=== PATIENT | male | born 1970 ===

== ENCOUNTER 2016-11-14 06:22 | Day surgery (SDC) | payer OTHER ==
[2016-11-14 06:44] VITALS: BMI 28.1
--- NOTE | 2016-11-14 08:02 | CP.SDSHP ---
Same Day Surgery H & P - History Proposed Procedure: COLONSCOPY Pre-Op Diagnosis: SEE NOTES - Previous Medical/Surgical History Cardiac: Hypertension Endocrine/Metabolic: Diabetes, Other Misc: Other Pain: 4.Moderate Pain - Allergies Allergies: Allergies No Known Allergies Allergy (Verified 11/04/15 21:00) - Physical Exam General Appearance: N Vital Signs: Vital Signs 11/14/16 11/14/16 07:13 07:46 Temperature 97.6 F 97.6 F Pulse Rate 80 80 Respiratory 16 16 Rate Blood Pressure 115/66 115/66 O2 Sat by Pulse 97 97 Oximetry Mental Status: Alert & Oriented x3 Neuro: WNL Heart: Other Lungs: WNL GI: Other - {Optional Preform as Required} Breast: WNL Abdomen: Other Rectal: Other Integument: WNL : Other Ortho: Other ENT: WNL - Impression Pt. Evaluated Today:Candidate for Anesthesia & Procedure: Yes - Date & Time Time: 08:03 Short Stay Discharge - Short Stay Discharge Admitting Diagnosis/Reason for Visit: HEMORRHAGE OF ANUS AND RECTUM,OTHER SPECIFIED SHILOH Disposition: HOME/ ROUTINE
[2016-11-14] MEDS ORDERED: Belladonna-Phenobarbital PO STA (08:03)
[2016-11-14] MEDS ORDERED: Propofol 10 mg/ml Inj (20 ML) ONE (08:06)
[2016-11-14 08:37] VITALS: TEMP 98
[2016-11-14 09:13] VITALS: O2SAT 100
[2016-11-14 11:34] VITALS: BP 125/71; PULSE 81; RESP 18
== END 2016-11-14 10:45 | disposition home or self-care (01) ==
LOC: C.ENDO 06:22
PROVIDERS: ATTEND Specialist
DX: K62.5 Hemorrhage of anus and rectum (principal); K64.8 Other hemorrhoids; K60.2 Anal fissure, unspecified; K52.9 Noninfective gastroenteritis and colitis, unspecified
CPT/HCPCS: 45380; 82948; 88305; J2704; J7040

== ENCOUNTER 2017-01-22 16:18 | Inpatient (IN) | payer OTHER ==
[2017-01-22 16:19] VITALS: BMI 28.1
[2017-01-22] MEDS ORDERED: Enalaprilat 2.5 MG/2 ML IV STA (17:38)
[2017-01-22 17:42] LABS: BASO % 0.6 % (0.0-2.0); EOS # 0.1 K/uL (0.0-0.7); EOS % 1.2 % (0.0-4.0); HEMATOCRIT 32.9 % (35.0-51.0); LYMPH # 1.6 K/uL (1.0-4.3); LYMPH % 20.8 % (20.0-40.0); MEAN CELL VOLUME 79.4 fL (80.0-94.0); MEAN CORPUSCULAR HEMOGLOBIN 26.7 pg (27.0-31.0); MEAN CORPUSCULAR HGB CONC 33.6 g/dL (33.0-37.0); MONO # 0.6 K/uL (0.0-0.8); MONO % 7.5 % (0.0-10.0); RBC URINE 23 /hpf (0-3); RED CELL DISTRIBUTION WIDTH 13.6 % (11.5-14.5); TRANSITIONAL EPITHIAL < 1 /hpf (0-3); URINE BACTERIA RARE (<OCC); URINE BILIRUBIN NEGATIVE (NEGATIVE); URINE COLOR Yellow (YELLOW); URINE GLUCOSE (UA) 1+ mg/dL (Normal); URINE KETONE NEGATIVE (NEGATIVE); URINE LEUKOCYTE ESTERASE NEG Leu/uL (Negative); URINE PROTEIN 3+ mg/dL (NEGATIVE); URINE UROBILINOGEN NORMAL mg/dL (0.2-1.0); WBC URINE 3 /hpf (0-5); WHITE BLOOD COUNT 7.9 K/uL (4.8-10.8)
[2017-01-22] MEDS ORDERED: Enalaprilat 2.5 MG/2 ML ONE (17:43)
[2017-01-22 17:46] LABS: URINE BLOOD 3+ (NEGATIVE)
[2017-01-22 17:49] LABS: CHLORIDE 101 mmol/L (98-107)
[2017-01-22 17:50] LABS: POTASSIUM 3.3 mmol/L (3.6-5.2); SODIUM 140 mmol/L (132-148)
[2017-01-22 17:52] LABS: ALB/GLOB RATIO 1.1 (1.0-2.1); ALKALINE PHOSPHATASE 85 U/L (38-126); AST/SGOT 28 U/L (17-59); BILIRUBIN,TOTAL 0.4 mg/dL (0.2-1.3); BLOOD UREA NITROGEN 18 mg/dL (9-20); CARBON DIOXIDE 27 mmol/L (22-30); GFR AFRICAN-AMERICAN 53; PARTIAL THROMBOPLASTIN TIME 33 SECONDS (21-34); TOTAL PROTEIN 6.5 g/dL (6.3-8.3)
[2017-01-22 17:53] LABS: ALT/SGPT 31 U/L (21-72); CALCIUM 8.7 mg/dl (8.6-10.4); GLUCOSE,RANDOM 97 mg/dL (75-110)
--- NOTE | 2017-01-22 18:50 | RAD ---
HISTORY: CP COMPARISON: None available TECHNIQUE: Chest, one view. FINDINGS: Examination limited by habitus. LUNGS: No focal consolidation. Please note that chest x-ray has limited sensitivity for the detection of pulmonary masses. PLEURA: No significant pleural effusion identified. No definite pneumothorax . CARDIOVASCULAR: The cardiomediastinal silhouette appears within normal limits of size. OSSEOUS STRUCTURES: No acute osseous abnormality identified. VISUALIZED UPPER ABDOMEN: Unremarkable. OTHER FINDINGS: None. IMPRESSION: No focal consolidation, significant pleural effusion, or definite pneumothorax identified.
--- NOTE | 2017-01-22 19:08 | C.PDOC ---
History Of Present Illness 47 y/o male presents to the ED with complaints of chest pain x4-5 days, radiates to back. Pt seen by Dr Nicola torres who referred patient to ED for further evaluation. He denies SOB, fever, chills, vomiting or any other complaints. Time Seen by Provider: 01/22/17 17:11 Chief Complaint (Nursing): Chest Pain History Per: Patient History/Exam Limitations: no limitations Onset/Duration Of Symptoms: Days Current Symptoms Are (Timing): Still Present Severity: Moderate Quality: "Pain" Modifying Factors: None Alleviating Factors: None Recent travel outside of the [place]: No Past Medical History Reviewed: Historical Data, Nursing Documentation, Vital Signs Vital Signs: Last Vital Signs Temp 98.5 F 01/22/17 16:29 Pulse 84 01/22/17 19:46 Resp 16 01/22/17 19:46 BP 206/130 H 01/22/17 19:46 Pulse Ox 98 01/22/17 19:46 - Medical History PMH: Anemia, Anxiety, Asthma, Depression, HTN, Hypercholesterolemia, Chronic Kidney Disease Family History: States: Unknown Family Hx - Social History Hx Alcohol Use: No Hx Substance Use: No - Immunization History Hx Tetanus Toxoid Vaccination: Yes Hx Influenza Vaccination: Yes Hx Pneumococcal Vaccination: Yes Review Of Systems Except As Marked, All Systems Reviewed And Found Negative. Constitutional: Negative for: Fever, Chills Cardiovascular: Positive for: Chest Pain Respiratory: Negative for: Shortness of Breath Gastrointestinal: Negative for: Vomiting Physical Exam - Physical Exam Appears: Non-toxic, No Acute Distress Skin: Warm, Dry, No Rash Head: Atraumatic, Normacephalic Neck: Normal, Normal ROM, Supple Chest: Symmetrical, No Tenderness Cardiovascular: Rhythm Regular, No Murmur Respiratory: Normal Breath Sounds, No Accessory Muscle Use, No Rales, No Rhonchi , No Wheezing Gastrointestinal/Abdominal: Normal Exam, Soft, No Tenderness Extremity: No Pedal Edema Extremity: Bilateral: Atraumatic Neurological/Psych: Oriented x3, Normal Speech, Normal Cognition ED Course And Treatment - Laboratory Results Result Diagrams: 01/22/17 17:30 01/22/17 17:30 ECG: Interpreted By Me, Viewed By Me ECG Rhythm: Sinus Rhythm ECG Interpretation: No Acute Changes Rate From EC (BPM) O2 Sat by Pulse Oximetry: 98 (room air) Pulse Ox Interpretation: Normal - Other Rad CXR X-Ray: Viewed By Me, Read By Radiologist Interpretation: Accession No. : [id number]. Patient Name / ID : VIVIANA Lynn / [id number]. Exam Date : 01/22/2017 17:24:20 ( Approved ). Study Comment : Sex / Age : M / 47Y. Creator : Romi Blum MD. Dictator : Romi Blum MD. Associate Justice : Weigh And Charge Worker : Romi Blum MD. Approver2 : Report Date : 01/22/2017 18:48:11. My Comment : . HISTORY: CP. COMPARISON: None available. TECHNIQUE: Chest, one view. FINDINGS: Examination limited by habitus. LUNGS: No focal consolidation. Please note that chest x-ray has limited sensitivity for the detection of pulmonary masses. PLEURA: No significant pleural effusion identified. No definite pneumothorax . CARDIOVASCULAR: The cardiomediastinal silhouette appears within normal limits of size. OSSEOUS STRUCTURES: No acute osseous abnormality identified. VISUALIZED UPPER ABDOMEN: Unremarkable. OTHER FINDINGS: None. IMPRESSION: No focal consolidation, significant pleural effusion, or definite pneumothorax identified. Progress Note: Blood pressure high, gave vasotec IV and aspirin. First round cardiac enzymes negative. BP still elevated. Labetalol IV ordered. On re-eval BP still severely elevated. Hydrolazine IV ordered. case was d/w who accepted patient to [facility] for admission. Disposition - Disposition Disposition: HOSPITALIZED Disposition Time: 20:15 Condition: FAIR - Clinical Impression Clinical Impression: Chest pain, Hypertensive urgency Decision To Admit - Pt Status Changed To: Hospital Disposition Of: Inpatient - Admit Certification Admit to Inpatient:: After my assessment, the patient will require hospitalization for at least two midnights. This is because of the severity of symptoms shown, intensity of services needed, and/or the medical risk in this patient being treated as an outpatient. - InPatient: Physician Admission Certification: I certify that this patient requires 2 or more midnights of care for the following reason:: Chest pain. Hypertensive urgency. patient will need more than 2 days of admission. - . Bed Request Type: Telemetry Admitting Physician: Jorge Petersen Patient Diagnosis: Chest pain, Hypertensive urgency
[2017-01-22] MEDS ORDERED: Labetalol 25mg/5ml Syringe IV STA (19:14)
[2017-01-22] MEDS ORDERED: Labetalol 25mg/5ml Syringe ONE (19:45)
[2017-01-22] MEDS ORDERED: Nitroglycerin 2% Ointment Foilpak UD TOP STA (20:20)
[2017-01-22] MEDS ORDERED: Nitroglycerin 2% Ointment Foilpak UD TOP ONE (20:24)
--- NOTE | 2017-01-22 21:40 | CT ---
EXAM: CT Chest Without Intravenous Contrast CLINICAL HISTORY: 47 years old, male; Pain; Chest pain; Type not specified; Additional info: Chest pain, radiating to the back, elevated BP TECHNIQUE: Axial computed tomography images of the chest without intravenous contrast. This CT exam was performed using one or more of the following dose reduction techniques: automated exposure control, adjustment of the mA and/or kV according to patient size, and/or use of iterative reconstruction technique. Coronal and sagittal reformatted images were created and reviewed. COMPARISON: No relevant prior studies available. FINDINGS: Limitations: Lack of intravenous contrast. Lungs: No consolidation. Pleural space: No pneumothorax. No significant effusion. Heart: No cardiomegaly. No significant pericardial effusion. Bones/joints: Hemangioma within spine. No acute fracture. Soft tissues: Unremarkable. Vasculature: Unremarkable. No aneurysm. Lymph nodes: No pathologically enlarged lymph nodes. Tubes, lines and devices: Spinal stimulator leads. IMPRESSION: 1.No acute findings. 2.Non-acute findings are described above.
[2017-01-22] MEDS: Insulin Detemir 100 units/ml Vial (Levemir) SC SCH (22:49)
[2017-01-22] MEDS: (Novolin R) Insulin Human Regular 100 units/ml vial SC SCH (22:50)
[2017-01-22] MEDS ORDERED: Potassium Chloride 20 mEq ER Tab PO STA (23:02)
[2017-01-23] MEDS ORDERED: Dextrose 50% SYRINGE Inj (50 ml) IV STA (06:41)
[2017-01-23] MEDS: (Novolin R) Insulin Human Regular 100 units/ml vial SC SCH ×4 (08:04→22:17)
--- NOTE | 2017-01-23 08:46 | RAD ---
PROCEDURE: CHEST RADIOGRAPH, 1 VIEW HISTORY: picc line confirmation COMPARISON: None available. FINDINGS: LUNGS: No focal infiltrate or effusion. PLEURA: No pneumothorax or pleural fluid seen. CARDIOVASCULAR: Normal. OSSEOUS STRUCTURES: No significant abnormalities. VISUALIZED UPPER ABDOMEN: Normal. OTHER FINDINGS: Vertically oriented radiopaque densities project over the spine which may represent stimulator device. Clinical correlation. IMPRESSION: No active disease.
[2017-01-23] MEDS ORDERED: DOXEPIN HCL 100 MG PO SCH (10:00)
[2017-01-23] MEDS: Enoxaparin 40 mg Syringe SC SCH (10:23)
[2017-01-23] MEDS: Insulin Detemir 100 units/ml Vial (Levemir) SC SCH ×2 (10:30→22:18)
--- NOTE | 2017-01-23 13:31 | CP.PCM.CON ---
History of Present Illness - History of Present Illness History of Present Illness: CC: CHest pain HPI: 47 year old man with DM, HTN, CKD. He is reporting one week onset of chest pain. Pain is located in the retrosternum. Pain is pressure like in character. Pain occurs while lying flat at home. Denies angina or CHF. He was sent in my nephrology. Review of Systems - Review of Systems All systems: reviewed and no additional remarkable complaints except Past Patient History - Past Medical History & Family History Past Medical History?: Yes - Past Social History Smoking Status: Never Smoked - CARDIAC Hx Hypercholesterolemia: Yes Hx Hypertension: Yes - PULMONARY Hx Asthma: Yes - NEUROLOGICAL Hx Neurological Disorder: Yes Hx Dizziness: Yes - HEENT Hx HEENT Problems: Yes Hx Deafness: Yes (LEFT EAR) Other/Comment: LEFT CORNEAL TRANSPLANT - RENAL Hx Chronic Kidney Disease: Yes - ENDOCRINE/METABOLIC Hx Endocrine Disorders: Yes Hx Diabetes Mellitus Type 1: Yes - HEMATOLOGICAL/ONCOLOGICAL Hx Anemia: Yes - INTEGUMENTARY Hx Dermatological Problems: Yes Other/Comment: EXTREMELY DRY SKIN OF HANDS - MUSCULOSKELETAL/RHEUMATOLOGICAL Hx Falls: No - GASTROINTESTINAL Hx Gastrointestinal Disorders: No - GENITOURINARY/GYNECOLOGICAL Hx Genitourinary Disorders: No - PSYCHIATRIC Hx Anxiety: Yes Hx Depression: Yes Hx Substance Use: No - SURGICAL HISTORY Hx Surgeries: Yes Hx Eye Surgery: Yes (LEFT EYE CORNEAL TRANSPLANT) Hx Herniorrhaphy: Yes (BILATERAL INGUINAL) Other/Comment: NEURO TRANSMITTER LEFT FLANK FOR DIABETIC NEUROPATHY - ANESTHESIA Hx Anesthesia: Yes Hx Anesthesia Reactions: No Hx Malignant Hyperthermia: No Meds Allergies/Adverse Reactions: Allergies Allergy/AdvReac Type Severity Reaction Status Date / Time hydromorphone [From Dilaudid] Allergy Verified 01/22/17 17:23 - Medications Medications: Current Medications Acetaminophen (Tylenol 325mg Tab) 650 mg PO Q6 PRN PRN Reason: Headache Last Admin: 01/23/17 06:35 Dose: 650 mg Aripiprazole (Abilify) 5 mg PO DAILY [facility] Last Admin: 01/23/17 10:23 Dose: 5 mg Chlorthalidone (Hygroton) 25 mg PO DAILY [facility] Last Admin: 01/23/17 10:23 Dose: 25 mg Enalapril Maleate (Vasotec) 10 mg PO DAILY [facility] Last Admin: 01/23/17 10:22 Dose: 10 mg Enoxaparin Sodium (Lovenox) 40 mg SC DAILY [facility] Last Admin: 01/23/17 10:23 Dose: 40 mg Ergocalciferol (Drisdol 50,000 Intl Units Cap) cap PO DAILY [facility] Famotidine (Pepcid) 20 mg PO DAILY [facility] Last Admin: 01/23/17 10:23 Dose: 20 mg Glimepiride (Amaryl) 4 mg PO DAILY [facility] Last Admin: 01/23/17 10:22 Dose: 4 mg Home Med (Doxepin Hcl [Sinequan]) 100 mg PO DAILY [facility] Last Admin: 01/23/17 10:24 Dose: Not Given Insulin Detemir (Levemir) 35 unit SC Q12 [facility] Last Admin: 01/23/17 10:30 Dose: 35 unit Insulin Human Regular (Novolin R) 0 unit SC ACHS [facility] PRN Reason: Protocol Last Admin: 01/23/17 12:26 Dose: 2 unit Meclizine HCl (Antivert) 12.5 mg PO PRN PRN PRN Reason: Dizziness Pioglitazone HCl (Actos) 15 mg PO DAILY [facility] Last Admin: 01/23/17 10:22 Dose: 15 mg Rosuvastatin Calcium (Crestor) 40 mg PO DAILY [facility] Last Admin: 01/23/17 10:22 Dose: 40 mg Sertraline HCl (Zoloft) 100 mg PO DAILY [facility] Last Admin: 01/23/17 10:21 Dose: 100 mg Topiramate (Topamax) 100 mg PO DAILY [facility] Last Admin: 01/23/17 10:25 Dose: 100 mg Physical Exam - Constitutional Appears: Well, Non-toxic - Head Exam Head Exam: ATRAUMATIC, NORMAL INSPECTION - Eye Exam Eye Exam: PERRL. absent: Scleral icterus - ENT Exam ENT Exam: Mucous Membranes Moist, Normal External Ear Exam - Neck Exam Neck exam: Positive for: Full Rom. Negative for: Lymphadenopathy - Respiratory Exam Respiratory Exam: Clear to Auscultation Bilateral, NORMAL BREATHING PATTERN - Cardiovascular Exam Cardiovascular Exam: REGULAR RHYTHM, RRR, +S1, +S2. absent: JVD - GI/Abdominal Exam GI & Abdominal Exam: Normal Bowel Sounds. absent: Organomegaly - Extremities Exam Extremities exam: Negative for: calf tenderness, pedal edema - Neurological Exam Neurological exam: CN II-XII Intact, Oriented x3 - Psychiatric Exam Psychiatric exam: Normal Affect, Normal Mood Results - Vital Signs Recent Vital Signs: Last Vital Signs Temp 98 F 01/23/17 07:00 Pulse 94 H 01/23/17 07:00 Resp 20 01/23/17 07:00 BP 160/92 H 01/23/17 10:22 Pulse Ox 95 01/23/17 07:00 - Labs Result Diagrams: 01/22/17 17:30 01/22/17 17:30 Labs: Laboratory Results - last 24 hr 01/22/17 01/23/17 01/23/17 21:43 06:19 06:39 POC Glucose (mg/dL) 142 H 56 L 52 L Total Creatine Kinase CK-MB (Mass) Troponin I, Quant 01/23/17 01/23/17 01/23/17 07:03 11:34 12:58 POC Glucose (mg/dL) 87 243 H Total Creatine Kinase 249 H CK-MB (Mass) 0.62 Troponin I, Quant < 0.0120 - EKG Data EKG Interpreted by: Myself EKG shows normal: Sinus rhythm - Imaging and Cardiology Chest x-ray Status: Image reviewed by me (No infiltrates or effusions) Assessment & Plan - Assessment and Plan (Free Text) Assessment: 47 year old man with chest pain atypical, EKG is negative for ischemia, serial trop is negative CKD is chronic and stable RAAS blockade to control proteinuria HTN is chronic and stable chlorthalidone and enalapril Dyslipidemia on crestor 40 DM chronic on insulin, actos, glimiperide If three troponins are negative he is cleared for D/C from a cardiac standpoint. Follow up in our office at the end of this week or early next week to reasses his symptoms and consider further CAD work up.
--- NOTE | 2017-01-23 15:00 | CP.PCM.PN ---
Objective - Vital Signs/Intake and Output Vital Signs (last 24 hours): Temp Pulse Resp BP Pulse Ox 98 F 94 H 20 160/92 H 95 01/23/17 07:00 01/23/17 07:00 01/23/17 07:00 01/23/17 10:22 01/23/17 07:00 - Medications Medications: Current Medications Acetaminophen (Tylenol 325mg Tab) 650 mg PO Q6 PRN PRN Reason: Headache Last Admin: 01/23/17 06:35 Dose: 650 mg Aripiprazole (Abilify) 5 mg PO DAILY [facility] Last Admin: 01/23/17 10:23 Dose: 5 mg Chlorthalidone (Hygroton) 25 mg PO DAILY [facility] Last Admin: 01/23/17 10:23 Dose: 25 mg Enalapril Maleate (Vasotec) 10 mg PO DAILY [facility] Last Admin: 01/23/17 10:22 Dose: 10 mg Enoxaparin Sodium (Lovenox) 40 mg SC DAILY [facility] Last Admin: 01/23/17 10:23 Dose: 40 mg Ergocalciferol (Drisdol 50,000 Intl Units Cap) 1 cap PO QWK [facility] Famotidine (Pepcid) 20 mg PO DAILY [facility] Last Admin: 01/23/17 10:23 Dose: 20 mg Glimepiride (Amaryl) 4 mg PO DAILY [facility] Last Admin: 01/23/17 10:22 Dose: 4 mg Home Med (Doxepin Hcl [Sinequan]) 100 mg PO DAILY [facility] Last Admin: 01/23/17 10:24 Dose: Not Given Insulin Detemir (Levemir) 35 unit SC Q12 [facility] Last Admin: 01/23/17 10:30 Dose: 35 unit Insulin Human Regular (Novolin R) 0 unit SC ACHS [facility] PRN Reason: Protocol Last Admin: 01/23/17 12:26 Dose: 2 unit Meclizine HCl (Antivert) 12.5 mg PO PRN PRN PRN Reason: Dizziness Pioglitazone HCl (Actos) 15 mg PO DAILY [facility] Last Admin: 01/23/17 10:22 Dose: 15 mg Rosuvastatin Calcium (Crestor) 40 mg PO DAILY [facility] Last Admin: 01/23/17 10:22 Dose: 40 mg Sertraline HCl (Zoloft) 100 mg PO DAILY [facility] Last Admin: 01/23/17 10:21 Dose: 100 mg Topiramate (Topamax) 100 mg PO DAILY [facility] Last Admin: 01/23/17 10:25 Dose: 100 mg - Labs Labs: PT 11.2 SECONDS (9.7-12.2) 01/22/17 17:30 INR 1.0 01/22/17 17:30 APTT 33 SECONDS (21-34) 01/22/17 17:30
--- NOTE | 2017-01-23 17:42 | CP.PCM.HP ---
History of Present Illness - History of Present Illness History of Present Illness: 47-year-old woman with female patient with past medical history of 7 years old male with history of hypertension, diabetes, CKD presented to the emergency department with chest pain intermittent since last 1 week. Pain is pressure-like and located in the retrosternal and that occurs mainly while lying flat at home. No fever, nausea, vomiting No swelling of the limbs, dizziness, lightheadedness, weakness No urinary or bowel symptoms Present on Admission - Present on Admission Any Indicators Present on Admission: No Past Patient History - Past Medical History & Family History Past Medical History?: Yes - Past Social History Smoking Status: Never Smoked - CARDIAC Hx Hypercholesterolemia: Yes Hx Hypertension: Yes - PULMONARY Hx Asthma: Yes - NEUROLOGICAL Hx Neurological Disorder: Yes Hx Dizziness: Yes - HEENT Hx HEENT Problems: Yes Hx Deafness: Yes (LEFT EAR) Other/Comment: LEFT CORNEAL TRANSPLANT - RENAL Hx Chronic Kidney Disease: Yes - ENDOCRINE/METABOLIC Hx Endocrine Disorders: Yes Hx Diabetes Mellitus Type 1: Yes - HEMATOLOGICAL/ONCOLOGICAL Hx Anemia: Yes - INTEGUMENTARY Hx Dermatological Problems: Yes Other/Comment: EXTREMELY DRY SKIN OF HANDS - MUSCULOSKELETAL/RHEUMATOLOGICAL Hx Falls: No - GASTROINTESTINAL Hx Gastrointestinal Disorders: No - GENITOURINARY/GYNECOLOGICAL Hx Genitourinary Disorders: No - PSYCHIATRIC Hx Anxiety: Yes Hx Depression: Yes Hx Substance Use: No - SURGICAL HISTORY Hx Surgeries: Yes Hx Eye Surgery: Yes (LEFT EYE CORNEAL TRANSPLANT) Hx Herniorrhaphy: Yes (BILATERAL INGUINAL) Other/Comment: NEURO TRANSMITTER LEFT FLANK FOR DIABETIC NEUROPATHY - ANESTHESIA Hx Anesthesia: Yes Hx Anesthesia Reactions: No Hx Malignant Hyperthermia: No Meds Home Medications: Home Medication List Medication Instructions Recorded Confirmed Type amLODIPine [Norvasc] 10 mg PO DAILY #30 tab 01/25/17 Rx Allergies/Adverse Reactions: Allergies Allergy/AdvReac Type Severity Reaction Status Date / Time hydromorphone [From Dilaudid] Allergy Verified 01/22/17 17:23 Physical Exam - Constitutional Appears: Well - Head Exam Head Exam: ATRAUMATIC, NORMAL INSPECTION, NORMOCEPHALIC - Eye Exam Eye Exam: EOMI, Normal appearance, PERRL Pupil Exam: NORMAL ACCOMODATION, PERRL - ENT Exam ENT Exam: Mucous Membranes Moist, Normal Exam - Neck Exam Neck exam: Positive for: Normal Inspection - Respiratory Exam Respiratory Exam: Decreased Breath Sounds - Cardiovascular Exam Cardiovascular Exam: REGULAR RHYTHM, +S1, +S2 - GI/Abdominal Exam GI & Abdominal Exam: Diminished Bowel Sounds, Soft - Rectal Exam Rectal Exam: Deferred Results - Vital Signs Recent Vital Signs: Last Vital Signs Temp 97.8 F 01/23/17 15:14 Pulse 89 01/23/17 15:14 Resp 20 01/23/17 15:14 BP 153/98 H 01/23/17 15:14 Pulse Ox 97 01/23/17 15:14 - Labs Result Diagrams: 01/22/17 17:30 01/22/17 17:30 Labs: Laboratory Results - last 24 hr 01/22/17 01/23/17 01/23/17 21:43 06:19 06:39 POC Glucose (mg/dL) 142 H 56 L 52 L Total Creatine Kinase CK-MB (Mass) Troponin I, Quant 01/23/17 01/23/17 01/23/17 07:03 11:34 12:58 POC Glucose (mg/dL) 87 243 H Total Creatine Kinase 249 H CK-MB (Mass) 0.62 Troponin I, Quant < 0.0120 01/23/17 16:16 POC Glucose (mg/dL) 101 Total Creatine Kinase CK-MB (Mass) Troponin I, Quant Assessment & Plan (1) Chest pain Status: Acute (2) Hypertensive urgency Status: Acute (3) Laceration Status: Acute - Assessment and Plan (Free Text) Plan: Labs and meds reviewed Patient hemodynamically stable Cardio consult Accu-Cheks Insulin Blood pressure meds DVT prophylaxis Monitor vitals
[2017-01-23] MEDS ORDERED: Aluminum Hydroxide/Magnesium Hydroxide Susp (30 mL) PO STA (21:34)
[2017-01-24] MEDS: (Novolin R) Insulin Human Regular 100 units/ml vial SC SCH ×5 (08:30→21:55)
--- NOTE | 2017-01-24 08:55 | CARD ---
APPROVED REPORT EKG Measurement Heart [id number] <Conclusion> Normal sinus rhythm Normal ECG
[2017-01-24] MEDS ORDERED: Ergocalciferol 50,000 Intl Units Cap PO SCH (10:00)
--- NOTE | 2017-01-24 10:54 | CP.PCM.PN ---
Subjective - Date & Time of Evaluation Date of Evaluation: 01/24/17 Time of Evaluation: 13:00 - Subjective Subjective: clinically same Objective - Vital Signs/Intake and Output Vital Signs (last 24 hours): Temp Pulse Resp BP Pulse Ox 98.1 F 90 20 162/105 H 97 01/24/17 07:54 01/24/17 07:54 01/24/17 07:54 01/24/17 07:54 01/24/17 07:54 Intake and Output: 01/24/17 01/24/17 06:59 18:59 Intake Total 360 Balance 360 - Medications Medications: Current Medications Acetaminophen (Tylenol 325mg Tab) 650 mg PO Q6 PRN PRN Reason: Headache Last Admin: 01/23/17 23:08 Dose: 650 mg Amlodipine Besylate (Norvasc) 10 mg PO DAILY [facility] Last Admin: 01/24/17 00:58 Dose: 10 mg Aripiprazole (Abilify) 5 mg PO DAILY [facility] Last Admin: 01/23/17 10:23 Dose: 5 mg Chlorthalidone (Hygroton) 25 mg PO DAILY [facility] Last Admin: 01/23/17 10:23 Dose: 25 mg Enalapril Maleate (Vasotec) 10 mg PO DAILY [facility] Last Admin: 01/23/17 10:22 Dose: 10 mg Enoxaparin Sodium (Lovenox) 40 mg SC DAILY [facility] Last Admin: 01/23/17 10:23 Dose: 40 mg Ergocalciferol (Drisdol 50,000 Intl Units Cap) 1 cap PO QWK [facility] Famotidine (Pepcid) 20 mg PO DAILY [facility] Last Admin: 01/23/17 10:23 Dose: 20 mg Glimepiride (Amaryl) 4 mg PO DAILY [facility] Last Admin: 01/23/17 10:22 Dose: 4 mg Home Med (Doxepin Hcl [Sinequan]) 100 mg PO DAILY [facility] Last Admin: 01/23/17 10:24 Dose: Not Given Insulin Detemir (Levemir) 35 unit SC Q12 [facility] Last Admin: 01/23/17 22:18 Dose: Not Given Insulin Human Regular (Novolin R) 0 unit SC ACHS [facility] PRN Reason: Protocol Last Admin: 01/24/17 08:30 Dose: 1 unit Meclizine HCl (Antivert) 12.5 mg PO PRN PRN PRN Reason: Dizziness Pioglitazone HCl (Actos) 15 mg PO DAILY [facility] Last Admin: 01/23/17 10:22 Dose: 15 mg Rosuvastatin Calcium (Crestor) 40 mg PO DAILY [facility] Last Admin: 01/23/17 10:22 Dose: 40 mg Sertraline HCl (Zoloft) 100 mg PO DAILY [facility] Last Admin: 01/23/17 10:21 Dose: 100 mg Topiramate (Topamax) 100 mg PO DAILY [facility] Last Admin: 01/23/17 10:25 Dose: 100 mg - Labs Labs: PT 11.2 SECONDS (9.7-12.2) 01/22/17 17:30 INR 1.0 01/22/17 17:30 APTT 33 SECONDS (21-34) 01/22/17 17:30 - Constitutional Appears: Well - Head Exam Head Exam: ATRAUMATIC, NORMAL INSPECTION, NORMOCEPHALIC - Eye Exam Eye Exam: EOMI, Normal appearance, PERRL Pupil Exam: NORMAL ACCOMODATION, PERRL - ENT Exam ENT Exam: Mucous Membranes Moist, Normal Exam - Neck Exam Neck Exam: Full ROM, Normal Inspection. absent: Lymphadenopathy - Respiratory Exam Respiratory Exam: Decreased Breath Sounds - Cardiovascular Exam Cardiovascular Exam: REGULAR RHYTHM, +S1, +S2 - GI/Abdominal Exam GI & Abdominal Exam: Soft, Diminished Bowel Sounds - Rectal Exam Rectal Exam: Deferred Assessment and Plan (1) Chest pain Status: Acute (2) Hypertensive urgency Status: Acute (3) Laceration Status: Acute - Assessment and Plan (Free Text) Plan: Patient clinically stable No acute event overnight Cardio on board DVT prophylaxis Accu-Cheks Insulin Crestor Zoloft Continue as advised Follow-up with labs
[2017-01-24] MEDS: Enoxaparin 40 mg Syringe SC SCH (10:56)
[2017-01-24] MEDS: Insulin Detemir 100 units/ml Vial (Levemir) SC SCH ×2 (10:58→22:00)
[2017-01-25] MEDS: (Novolin R) Insulin Human Regular 100 units/ml vial SC SCH ×3 (08:19→17:38)
[2017-01-25] MEDS: Enoxaparin 40 mg Syringe SC SCH (09:00)
[2017-01-25] MEDS: Insulin Detemir 100 units/ml Vial (Levemir) SC SCH (09:01)
--- NOTE | 2017-01-25 09:13 | RAD ---
HISTORY: Nausea/vomiting COMPARISON: No prior. FINDINGS: BOWEL: The bowel gas pattern is nonspecific. There is no evidence of bowel dilatation or free intraperitoneal air. BONES: Normal. OTHER FINDINGS: None. IMPRESSION: Nonobstructive bowel-gas pattern.
--- NOTE | 2017-01-25 13:18 | CP.PCM.PN ---
Subjective - Date & Time of Evaluation Date of Evaluation: 01/25/17 Time of Evaluation: 11:20 - Subjective Subjective: clinically same Objective - Vital Signs/Intake and Output Vital Signs (last 24 hours): Temp Pulse Resp BP Pulse Ox 98.0 F 87 18 135/72 98 01/25/17 07:30 01/25/17 11:58 01/25/17 07:30 01/25/17 09:05 01/25/17 07:30 Intake and Output: 01/25/17 01/25/17 06:59 18:59 Intake Total 500 Balance 500 - Medications Medications: Current Medications Acetaminophen (Tylenol 325mg Tab) 650 mg PO Q6 PRN PRN Reason: Headache Last Admin: 01/24/17 17:17 Dose: 650 mg Amlodipine Besylate (Norvasc) 10 mg PO DAILY [facility] Last Admin: 01/25/17 09:05 Dose: 10 mg Aripiprazole (Abilify) 5 mg PO DAILY [facility] Last Admin: 01/25/17 09:04 Dose: 5 mg Chlorthalidone (Hygroton) 25 mg PO DAILY [facility] Last Admin: 01/25/17 09:05 Dose: 25 mg Enalapril Maleate (Vasotec) 10 mg PO DAILY [facility] Last Admin: 01/25/17 09:05 Dose: 10 mg Enoxaparin Sodium (Lovenox) 40 mg SC DAILY [facility] Last Admin: 01/25/17 09:00 Dose: 40 mg Ergocalciferol (Drisdol 50,000 Intl Units Cap) 1 cap PO QWK [facility] Last Admin: 01/24/17 11:00 Dose: 1 cap Famotidine (Pepcid) 20 mg PO DAILY [facility] Last Admin: 01/25/17 09:05 Dose: 20 mg Glimepiride (Amaryl) 4 mg PO DAILY [facility] Last Admin: 01/25/17 09:05 Dose: 4 mg Home Med (Doxepin Hcl [Sinequan]) 100 mg PO DAILY [facility] Last Admin: 01/23/17 10:24 Dose: Not Given Insulin Detemir (Levemir) 35 unit SC Q12 [facility] Last Admin: 01/25/17 09:01 Dose: 35 unit Insulin Human Regular (Novolin R) 0 unit SC ACHS [facility] PRN Reason: Protocol Last Admin: 07/27/17 12:08 Dose: 1 unit Meclizine HCl (Antivert) 12.5 mg PO PRN PRN PRN Reason: Dizziness Pioglitazone HCl (Actos) 15 mg PO DAILY [facility] Last Admin: 01/25/17 09:05 Dose: 15 mg Rosuvastatin Calcium (Crestor) 40 mg PO DAILY [facility] Last Admin: 01/25/17 09:04 Dose: 40 mg Sertraline HCl (Zoloft) 100 mg PO DAILY [facility] Last Admin: 01/25/17 09:05 Dose: 100 mg Topiramate (Topamax) 100 mg PO DAILY [facility] Last Admin: 01/25/17 09:05 Dose: 100 mg - Labs Labs: PT 11.2 SECONDS (9.7-12.2) 01/22/17 17:30 INR 1.0 01/22/17 17:30 APTT 33 SECONDS (21-34) 01/22/17 17:30 - Constitutional Appears: Well - Head Exam Head Exam: ATRAUMATIC, NORMAL INSPECTION, NORMOCEPHALIC - Eye Exam Eye Exam: EOMI, Normal appearance, PERRL Pupil Exam: NORMAL ACCOMODATION, PERRL - ENT Exam ENT Exam: Mucous Membranes Moist, Normal Exam - Neck Exam Neck Exam: Full ROM, Normal Inspection. absent: Lymphadenopathy - Respiratory Exam Respiratory Exam: Decreased Breath Sounds - Cardiovascular Exam Cardiovascular Exam: REGULAR RHYTHM, +S1, +S2 - GI/Abdominal Exam GI & Abdominal Exam: Soft, Diminished Bowel Sounds - Rectal Exam Rectal Exam: Deferred Assessment and Plan (1) Chest pain Status: Acute (2) Hypertensive urgency Status: Acute (3) Laceration Status: Acute - Assessment and Plan (Free Text) Plan: Clinically stable Discussed with family Plan discharge today Continue home meds Follow-up with cardio as outpatient Blood sugar monitoring at home Antidiabetic diet Return to ED if symptom recurs
[2017-01-25 17:07] VITALS: BP 145/87; PULSE 91; RESP 20; TEMP 98.3; O2SAT 97
== END 2017-01-25 18:40 | disposition home or self-care (01) | DRG 134 ==
LOC: C.ER 16:18 → C.6T 20:20
PROVIDERS: ADMIT Internal Medicine Nephrology; ATTEND Internal Medicine Nephrology
DX: I16.0 Hypertensive urgency (principal); R07.89 Other chest pain; E10.40 Type 1 diabetes mellitus with diabetic neuropathy, unspecified; I12.9 Hypertensive chronic kidney disease with stage 1 through stage 4 chronic kidney disease, or unspecified chronic kidney disease; E10.22 Type 1 diabetes mellitus with diabetic chronic kidney disease; N18.9 Chronic kidney disease, unspecified; J45.909 Unspecified asthma, uncomplicated; E78.5 Hyperlipidemia, unspecified; F32.9 Major depressive disorder, single episode, unspecified; H91.92 Unspecified hearing loss, left ear; E78.00 Pure hypercholesterolemia, unspecified; L85.3 Xerosis cutis; Z79.4 Long term (current) use of insulin; Z94.7 Corneal transplant status

== ENCOUNTER 2017-03-20 07:30 | Day surgery (SDC) | payer OTHER ==
[2017-03-20 07:54] VITALS: BMI 29.7
[2017-03-20 08:19] VITALS: O2SAT 100
--- NOTE | 2017-03-20 08:34 | CP.SDSHP ---
Same Day Surgery H & P - History Proposed Procedure: EGD Pre-Op Diagnosis: SEE NOTES - Previous Medical/Surgical History Cardiac: Hypertension Endocrine/Metabolic: Diabetes, Other Misc: Other Pain: 4.Moderate Pain - Allergies Allergies: Allergies hydromorphone [From Dilaudid] Allergy (Verified 01/22/17 17:23) - Physical Exam General Appearance: N Vital Signs: Vital Signs 03/20/17 08:09 Temperature 97.1 F L Pulse Rate 104 H Respiratory 19 Rate Blood Pressure 138/91 H O2 Sat by Pulse 100 Oximetry Mental Status: Alert & Oriented x3 Neuro: WNL Heart: Other Lungs: Other GI: WNL - {Optional Preform as Required} Breast: WNL Abdomen: Other Rectal: Other Integument: WNL : WNL Ortho: WNL ENT: WNL - Impression Pt. Evaluated Today:Candidate for Anesthesia & Procedure: Yes - Date & Time Time: 08:33 Short Stay Discharge - Short Stay Discharge Admitting Diagnosis/Reason for Visit: FUNCTIONAL DYSPEPSIA Disposition: HOME/ ROUTINE
[2017-03-20] MEDS ORDERED: Lidocaine Hydrochloride 5 ML INJ ONE (08:36)
[2017-03-20] MEDS ORDERED: Propofol 10 mg/ml Inj (20 ML) ONE (08:36)
[2017-03-20 08:57] VITALS: TEMP 97.8
[2017-03-20] MEDS ORDERED: Pantoprazole 40 mg EC Tab PO ONE (09:05)
[2017-03-20] MEDS ORDERED: (Novolin R) Insulin Human Regular 100 units/ml vial IV ONE (09:27)
[2017-03-20 10:10] VITALS: BP 115/72; PULSE 85
[2017-03-20 10:11] VITALS: RESP 14
== END 2017-03-20 11:00 | disposition home or self-care (01) ==
LOC: C.ENDO 07:30
PROVIDERS: ATTEND Specialist
DX: B37.81 Candidal esophagitis (principal); K30 Functional dyspepsia; K44.9 Diaphragmatic hernia without obstruction or gangrene
CPT/HCPCS: 43235; 82948; J2704; J2765